=== PATIENT | male | born 1970 | race Caucasian/White ===

== ENCOUNTER 2025-07-03 08:44 | Outpatient (AMB) | payer MEDICARE, SELFPAY ==
--- NOTE | 2025-07-03 08:55 | PD.GSCLVISIT ---
Vital Signs - [facility] 07/03/25 08:56 Height 1.7 m Height Method Stated Weight 64.41 kg Weight Measurement Method Standing Scale BMI 22.2 BP 122/60 Blood Pressure Source Automatic Cuff Blood Pressure Location Right Upper Arm Position Sitting Respiration 18 Pulse 69 Pulse Source Monitor Temp 97.6 F Temp Source Temporal Artery Scan Oxygen Delivery Method Room Air Med/Allergies Allergies & Medications Allergies codeine Allergy (Severe, Verified 07/03/25 08:57) RASH erythromycin base Allergy (Severe, Verified 07/03/25 08:57) RASH adhesive tape Allergy (Unknown, Verified 07/03/25 08:57) Medication Reconciliation Unobtainable 07/03/25 [History Confirmed 07/03/25] MA Intake Visit Data Collection New Patient or Established: Established Patient (seen at [facility] within 3 years) Reason for Visit:: BUMP ON TOP OF RIGHT SHOULDER Pain Present Currently: Yes Pain Location: Shoulder Pain scale:: 9 Pain Scale Used: [place]/[employer] Required: No PCP or OBGYN visit in last 3 months: Yes Hx Now: No Do You Feel Safe at Home: Yes Authorities Contacted: N/A Smoking Status Smoking Status: Never smoker Immunization / Flu Flu Vaccine in the Last 12 Months: Yes Flu Vaccine Exclusion Criteria: No Exclusion Criteria Past Medical History Past Medical History NEUROLOGIC: Negative Neurological Disorders or Seizures CARDIAC: Positive Cardiac Disorders and Hypertension; Negative Congestive Heart Failure RESPIRATORY: Negative Chronic Obstructive Pulmonary Disease (COPD) GASTROINTESTINAL: Negative Gastrointestinal Disorders GENITOURINARY: Positive Genitourinary Disorders, Renal Disease and Dialysis MUSCULOSKELETAL: Negative Musculoskeletal Disorders ENT: Positive Cataracts ENDOCRINE: Negative Endocrine Disorders, Diabetes Mellitus Type 1 or Diabetes Mellitus Type 2 HEMATOLOGIC: Negative Blood Disorders OTHER HISTORY: Negative Anesthesia Reactions Surgical History SURGICAL: Positive Cardiac Surgery and Nephrectomy Social History SMOKING STATUS: Smoking status: Never smoker ALCOHOL: Alcohol Intake: Never HOUSING: Housing: House LIVES WITH: Lives With: Alone Travel Risk Travel Hx Recent Travel: No HPI HPI Narrative 54M with HTN, ESRD on HD MWF presenting with right upper back mass. Pt reports he has had it for a few years and it was not initially bothersome but he recently began having pain to the area, was prescribed antibiotics which will be completed last week and has noticed some drainage from the area. He states he has popped it in the past and noticed malodorous drainage. PMH: HTN, ESRD PSHx: Kidney transplant Meds: No antiplt or anticoagulation Allergies: codeine, erythromycin Social hx: No cigarette smoking ROS Review of Systems Systems Reviewed: All systems reviewed, normal except as documented Objective/Exam General General Appearance: alert, cooperative and well groomed Resp Respiratory exam: Absent respiratory distress Back Back exam: Present other (right upper back cyst with erythema, approx 2cm in craniocaudal dimension x1cm transverse, pus expressed from superior and inferior aspects) Assessment & Plan Diagnosis / Problem List (1) Sebaceous cyst: Status: Acute Assessment & Plan: 54M with HTN, ESRD presenting with right upper back mass, likely a sebaceous cyst which is currently infected. I explained that excision should wait until the infection clears and expressed as much pus as pt could tolerate today. Will follow up in 1 week and plan on operative excision when infection is resolved Office Procedures GNS Level of Care Nursing/Assessment Patient Status: Established Patient Nursing Assessment/Reassesment: Medication Reconciliation, Update PMH in EMR and Vital Signs Coordination of Care: Complex Care and Chronic Disease 1-5, Education Complex Pt/Fam, Consent,records obtained, informed consent, 1 Ins Authorization and Staff clarify orders Established Patient Charge Established Patient Point Assignment: 105 Established Patient Point Charge: EP Level 3 (80-115) Patient Portal Questionaires Social History Living Situation History Housing: House Tobacco History Smoking Status: Never smoker Alcohol History Alcohol Intake: Never Domestic Abuse History Do You Feel Safe at Home: Yes Review of Systems Report any current symptoms Only answer those that you have currently: Past Medical History Past Medical History Have you ever been diagnosed with any of the following: Neurological Problems Seizures: No Cardiology Problems Congestive Heart Failure: No Hypertension: Yes Respiratory Problems Chronic Obstructive Pulmonary Disease (COPD): No Genital/Urinary Problems Renal Disease: Yes Dialysis: Yes Head,Eye,Nose,Throat Problems Cataracts: Yes Endocrine Problems Diabetes Mellitus Type 1: No Diabetes Mellitus Type 2: No Other Problems Anesthesia Reactions: No
[2025-07-03 08:56] VITALS: BP 122/60; PULSE 69; RESP 18; TEMP 36.4; BMI 22.2
== END 2025-07-03 09:27 | disposition home or self-care (01) ==
LOC: HODSRG 08:44
PROVIDERS: PCP Internal Medicine; Referring Provider Internal Medicine; Supervising Provider Surgery; Visit Provider Surgery
DX: L72.3 Sebaceous cyst (principal); I12.0 Hypertensive chronic kidney disease with stage 5 chronic kidney disease or end stage renal disease; N18.6 End stage renal disease; Z99.2 Dependence on renal dialysis
CPT/HCPCS: 99213; G0463